=== PATIENT | male | born 1985 | race Caucasian/White ===

== ENCOUNTER 2017-09-29 13:58 | Inpatient (IN) | payer MEDICAID, OTHER ==
[~2017-09-29] VITALS: Ht 175.3 cm; Wt 85.0 kg
[~2017-09-29 13:58] MED LIST: RISP2TAB76 PO
[2017-09-29] MEDS ORDERED: PALI1.5T PO (14:24)
[2017-09-29 14:46] LABS: BASOPHILS # (AUTO) 0.02 K/uL (0.00-0.20); BASOPHILS % (AUTO) 0.3 % (0.0-2.0); EOSINOPHILS # (AUTO) 0.27 K/uL (0.00-0.70); EOSINOPHILS % (AUTO) 3.92 % (1.0-6.0); HEMATOCRIT 46.5 % (41-53); HEMOGLOBIN 15.8 g/dL (13.5-17.5); LYMPHOCYTES # (AUTO) 2.2 K/uL (1.0-4.8); LYMPHOCYTES % (AUTO) 31.4 % (22.0-44.0); MEAN CORPUSCULAR HEMOGLOBIN 29.7 pg (26.0-34.0); MEAN CORPUSCULAR HGB CONC 33.9 G/dL (31.0-37.0); MEAN CORPUSCULAR VOLUME 88 fL (80-100); MONOCYTES # (AUTO) 0.5 K/uL (0.1-1.0); MONOCYTES % (AUTO) 7.7 % (2.0-9.0); NEUTROPHILS # (AUTO) 3.9 K/uL (1.8-7.7); NEUTROPHILS % (AUTO) 56.7 % (40.0-70.0); PLATELET COUNT (AUTO) 206 K/uL (150-450); RED BLOOD CELL COUNT(AUTO) 5.31 MIL/uL (4.50-5.90); RED CELL DISTRIBUTION WIDTH 13.4 % (11.5-14.5); WHITE BLOOD COUNT (AUTO) 6.9 K/uL (4.5-11.0)
[2017-09-29 14:47] LABS: ANION GAP 9 mmol/L (8-16); CALCIUM, TOTAL 8.5 mg/dL (8.8-10.5); CARBON DIOXIDE 27 mmol/L (22-29); CHLORIDE 105 mmol/L (98-107); CREATININE 0.93 mg/dL (0.60-1.30); GLOMERULAR FILTR. RATE CALC > 60 mL/min (>60); POTASSIUM 4.1 mmol/L (3.5-5.1); SODIUM SERUM 141 mmol/L (136-145); UREA NITROGEN, BLOOD 10 mg/dL (7-18)
[2017-09-29 15:54] LABS: ALANINE AMINOTRANSFERASE 18 U/L (12-78); BILIRUBIN,TOTAL 0.8 mg/dL (0.1-1.0); TOTAL PROTEIN, SERUM 6.9 g/dL (6.4-8.2)
[2017-09-29 16:09] LABS: ASPARTATE AMINOTRANSFERASE 14 U/L (15-37)
[2017-09-29] MEDS ORDERED: PALI3 PO (16:34)
[2017-09-29] MEDS ORDERED: RisperiDONE 1 MG TABLET PO PRN (16:45)
[2017-09-29] MEDS ORDERED: GuaiFENesin/D-METHORPHAN [SUGAR-FREE] 200-20MG/10 ML SYRUP UDCUP PO PRN (16:45)
[2017-09-29] MEDS ORDERED: MAGNESIUM HYDROXIDE SUSPENSION 30 ML UDCUP PO PRN (16:45)
[2017-09-29] MEDS ORDERED: ACETAMINOPHEN 325 MG TABLET PO PRN (16:45)
[2017-09-29] MEDS ORDERED: HALOPERIDOL 5 MG TABLET PO ONE (16:45)
[2017-09-29] MEDS ORDERED: MAG HYDROX/AL HYDROX/SIMETH ES 30 ML SUSPENSION UDCUP PO PRN (16:45)
[2017-09-29] MEDS ORDERED: ZOLPIDEM TARTRATE 10 MG TABLET PO PRN (16:45)
[2017-09-29] MEDS ORDERED: PROMETHAZINE HCL 25 MG TABLET PO PRN (16:45)
[2017-09-29] MEDS ORDERED: LORazepam 2 MG TABLET PO ONE (16:45)
[2017-09-29] MEDS ORDERED: TUBERCULIN, PURIFIED PROTEIN DERIVATIVE 5 TU/0.1 ML SYG ID ONE (16:45)
[2017-09-29] MEDS ORDERED: LOPERAMIDE HCL 2 MG CAPSULE PO PRN (16:45)
[2017-09-29 19:40] VITALS: BP 108/68
[2017-09-29] MEDS ORDERED: RisperiDONE 3 MG TABLET PO SCH (21:00)
[2017-09-29] MEDS: THIAMINE HCL 100 MG TABLET PO SCH (21:02)
[2017-09-30 07:12] LABS: BASOPHILS % (AUTO) 0.8 % (0.0-2.0); EOSINOPHILS % (AUTO) 4.9 % (1.0-6.0); HEMATOCRIT 47.1 % (41-53); HEMOGLOBIN 16.3 g/dL (13.5-17.5); LYMPHOCYTES # (AUTO) 2.3 K/uL (1.0-4.8); LYMPHOCYTES % (AUTO) 41.7 % (22.0-44.0); MEAN CORPUSCULAR HEMOGLOBIN 30.1 pg (26.0-34.0); MEAN CORPUSCULAR HGB CONC 34.6 G/dL (31.0-37.0); MEAN CORPUSCULAR VOLUME 87 fL (80-100); MONOCYTES # (AUTO) 0.5 K/uL (0.1-1.0); MONOCYTES % (AUTO) 9.8 % (2.0-9.0); NEUTROPHILS # (AUTO) 2.4 K/uL (1.8-7.7); NEUTROPHILS % (AUTO) 42.8 % (40.0-70.0); PLATELET COUNT (AUTO) 173 K/uL (150-450); RED BLOOD CELL COUNT(AUTO) 5.41 MIL/uL (4.50-5.90); RED CELL DISTRIBUTION WIDTH 13.8 % (11.5-14.5); WHITE BLOOD COUNT (AUTO) 5.6 K/uL (4.5-11.0)
[2017-09-30 07:24] LABS: HEMOGLOBIN A1C 4.9 % (4.5-6.2)
[2017-09-30 07:56] LABS: ALANINE AMINOTRANSFERASE 18 U/L (12-78); ALBUMIN 3.8 g/dL (3.4-5.0); ANION GAP 8 mmol/L (8-16); ASPARTATE AMINOTRANSFERASE 10 U/L (15-37); BILIRUBIN,TOTAL 0.7 mg/dL (0.1-1.0); CALCIUM, TOTAL 8.7 mg/dL (8.8-10.5); CARBON DIOXIDE 26 mmol/L (22-29); CHLORIDE 106 mmol/L (98-107); CHOL/HDL RATIO 2.7 (4.2-7.3); CREATININE 0.97 mg/dL (0.60-1.30); GLOMERULAR FILTR. RATE CALC > 60 mL/min (>60); POTASSIUM 4.1 mmol/L (3.5-5.1); SODIUM SERUM 140 mmol/L (136-145); THYROID STIMULATING HORMONE 1.85 uIU/mL (0.36-3.74); TOTAL PROTEIN, SERUM 6.4 g/dL (6.4-8.2); UREA NITROGEN, BLOOD 10 mg/dL (7-18)
[2017-09-30] MEDS: MULTIVITAMINS WITH MINERALS, THERAPEUTIC TABLET PO SCH (08:16)
[2017-09-30] MEDS: FOLIC ACID 1 MG TABLET PO SCH (08:16)
[2017-09-30] MEDS: THIAMINE HCL 100 MG TABLET PO SCH ×2 (08:16→17:53)
[2017-09-30 09:37] VITALS: BP 110/67
[2017-09-30] MEDS: HydrOXYzine PAMOATE 50 MG CAPSULE PO PRN (11:27)
[2017-09-30] MEDS: LORazepam 2 MG TABLET PO PRN ×2 (11:28→17:53)
[2017-09-30] MEDS: NICOTINE 21 MG/24 HOUR PATCH TD SCH (17:54)
[2017-09-30] MEDS ORDERED: PALIPERIDONE 1.5 MG ER TABLET PO PRN (18:45)
[2017-09-30] MEDS ORDERED: PALIPERIDONE PALMITATE 234 MG/1.5 ML SYRINGE IM ONE (18:45)
[2017-09-30] MEDS: PALIPERIDONE 3 MG ER TABLET PO SCH (21:00)
[2017-10-01 08:37] VITALS: BP 104/59
[2017-10-01] MEDS: HydrOXYzine PAMOATE 50 MG CAPSULE PO PRN (10:01)
[2017-10-01] MEDS: LORazepam 2 MG TABLET PO PRN (10:01)
[2017-10-01] MEDS: THIAMINE HCL 100 MG TABLET PO SCH ×2 (10:02→16:13)
[2017-10-01] MEDS: FOLIC ACID 1 MG TABLET PO SCH (10:02)
[2017-10-01] MEDS: MULTIVITAMINS WITH MINERALS, THERAPEUTIC TABLET PO SCH (10:02)
[2017-10-01] MEDS: NICOTINE 21 MG/24 HOUR PATCH TD SCH (10:05)
[2017-10-01] MEDS: PALIPERIDONE 3 MG ER TABLET PO SCH (20:22)
[2017-10-02 08:15] VITALS: BP 102/62
[2017-10-02] MEDS: THIAMINE HCL 100 MG TABLET PO SCH ×2 (09:07→17:32)
[2017-10-02] MEDS: MULTIVITAMINS WITH MINERALS, THERAPEUTIC TABLET PO SCH (09:07)
[2017-10-02] MEDS: FOLIC ACID 1 MG TABLET PO SCH (09:07)
[2017-10-02] MEDS: NICOTINE 21 MG/24 HOUR PATCH TD SCH (09:19)
[2017-10-02 16:52] VITALS: BP 110/65
[2017-10-02] MEDS: PALIPERIDONE 3 MG ER TABLET PO SCH (20:44)
[2017-10-03] MEDS: THIAMINE HCL 100 MG TABLET PO SCH ×2 (08:00→16:06)
[2017-10-03] MEDS: FOLIC ACID 1 MG TABLET PO SCH (08:00)
[2017-10-03] MEDS: MULTIVITAMINS WITH MINERALS, THERAPEUTIC TABLET PO SCH (08:00)
[2017-10-03] MEDS: NICOTINE 21 MG/24 HOUR PATCH TD SCH (08:00)
[2017-10-03 08:03] VITALS: BP 94/60
[2017-10-03 16:00] VITALS: BP 112/60
[2017-10-03] MEDS: LORazepam 2 MG TABLET PO PRN (16:06)
[2017-10-03] MEDS: PALIPERIDONE 3 MG ER TABLET PO SCH (21:40)
[2017-10-04 08:13] VITALS: BP 105/51
[2017-10-04] MEDS ORDERED: PALIPERIDONE PALMITATE 156 MG/ML SYRINGE IM ONE (09:00)
[2017-10-04] MEDS: NICOTINE 21 MG/24 HOUR PATCH TD SCH (09:23)
[2017-10-04] MEDS: FOLIC ACID 1 MG TABLET PO SCH (09:24)
[2017-10-04] MEDS: MULTIVITAMINS WITH MINERALS, THERAPEUTIC TABLET PO SCH (09:24)
[2017-10-04] MEDS: THIAMINE HCL 100 MG TABLET PO SCH ×2 (09:24→16:18)
[2017-10-04] MEDS ORDERED: PALIPERIDONE PALMITATE 234 MG/1.5 ML SYRINGE IM ONE (13:15)
[2017-10-04] MEDS: PALIPERIDONE 3 MG ER TABLET PO SCH (20:37)
[2017-10-05 08:02] VITALS: BP 105/58
[2017-10-05] MEDS: MULTIVITAMINS WITH MINERALS, THERAPEUTIC TABLET PO SCH (09:00)
[2017-10-05] MEDS: FOLIC ACID 1 MG TABLET PO SCH (09:01)
[2017-10-05] MEDS: NICOTINE 21 MG/24 HOUR PATCH TD SCH (09:01)
[2017-10-05] MEDS: THIAMINE HCL 100 MG TABLET PO SCH ×2 (09:01→16:46)
[2017-10-05 16:58] VITALS: BP 91/60
[2017-10-05] MEDS: PALIPERIDONE 3 MG ER TABLET PO SCH (20:08)
[2017-10-06 08:00] VITALS: BP 100/53
[2017-10-06] MEDS: FOLIC ACID 1 MG TABLET PO SCH (08:23)
[2017-10-06] MEDS: THIAMINE HCL 100 MG TABLET PO SCH ×2 (08:23→16:21)
[2017-10-06] MEDS: NICOTINE 21 MG/24 HOUR PATCH TD SCH (08:24)
[2017-10-06] MEDS: MULTIVITAMINS WITH MINERALS, THERAPEUTIC TABLET PO SCH (08:24)
[2017-10-06] MEDS ORDERED: PALI234D IM (13:02)
[2017-10-06 16:03] VITALS: BP 110/60
== END 2017-10-06 19:00 | disposition home or self-care (01) | DRG 750 ==
LOC: EMS 13:59 → EEVIPCON 13:59 → 3EC 17:18
PROVIDERS: ADMIT Psychiatry & Neurology Psychiatry; ATTEND Psychiatry & Neurology Psychiatry
DX: F20.0 Paranoid schizophrenia (principal); R45.851 Suicidal ideations; Z91.14 Patient's other noncompliance with medication regimen; E66.9 Obesity, unspecified; F17.210 Nicotine dependence, cigarettes, uncomplicated; G47.00 Insomnia, unspecified; Z65.3 Problems related to other legal circumstances; Z68.29 Body mass index [BMI] 29.0-29.9, adult; Z91.19 Patient's noncompliance with other medical treatment and regimen; Z79.899 Other long term (current) drug therapy; Z71.6 Tobacco abuse counseling
CPT/HCPCS: 83036; 84439; 84443; 86592; 93005; 99285; G0480

== ENCOUNTER 2017-12-25 17:49 | Inpatient (IN) | payer MEDICAID ==
[~2017-12-25] VITALS: Ht 175.3 cm; Wt 86.6 kg
[~2017-12-25 17:49] MED LIST changes: +PALI234D IM; -RISP2TAB76 PO
[2017-12-25 20:27] VITALS: BP 119/72
[2017-12-25] MEDS ORDERED: INFLUENZA VIRUS VACCINE QVS 2017-18 (3YR+)/PF 60 MCG/0.5 ML SYRINGE IM ONE (20:30)
[2017-12-25] MEDS ORDERED: HALOPERIDOL 5 MG TABLET PO PRN (20:45)
[2017-12-25] MEDS ORDERED: ZOLPIDEM TARTRATE 10 MG TABLET PO PRN (20:45)
[2017-12-25 21:10] VITALS: BP 117/77
[2017-12-26 01:12] VITALS: BP 110/64
[2017-12-26 08:09] LABS: BASOPHILS % (AUTO) 0.6 % (0.0-2.0); EOSINOPHILS % (AUTO) 4.5 % (1.0-6.0); HEMATOCRIT 46.1 % (41-53); LYMPHOCYTES % (AUTO) 41.5 % (22.0-44.0); MEAN CORPUSCULAR HEMOGLOBIN 29.9 pg (26.0-34.0); MEAN CORPUSCULAR HGB CONC 34.8 G/dL (31.0-37.0); MEAN CORPUSCULAR VOLUME 86 fL (80-100); MONOCYTES # (AUTO) 0.6 K/uL (0.1-1.0); MONOCYTES % (AUTO) 8.9 % (2.0-9.0); NEUTROPHILS # (AUTO) 3.2 K/uL (1.8-7.7); NEUTROPHILS % (AUTO) 44.5 % (40.0-70.0); PLATELET COUNT (AUTO) 234 K/uL (150-450); RED BLOOD CELL COUNT(AUTO) 5.37 MIL/uL (4.50-5.90); RED CELL DISTRIBUTION WIDTH 13.5 % (11.5-14.5)
[2017-12-26 08:22] VITALS: BP 100/60
[2017-12-26 08:27] LABS: HEMOGLOBIN A1C 5.1 % (4.5-6.2)
[2017-12-26 08:37] LABS: ALANINE AMINOTRANSFERASE 16 U/L (12-78); ALBUMIN 3.6 g/dL (3.4-5.0); ALKALINE PHOSPHATASE 96 U/L (46-116); ANION GAP 9 mmol/L (8-16); ASPARTATE AMINOTRANSFERASE 14 U/L (15-37); BILIRUBIN,TOTAL 1.2 mg/dL (0.1-1.0); CALCIUM, TOTAL 8.4 mg/dL (8.8-10.5); CARBON DIOXIDE 27 mmol/L (22-29); CHLORIDE 107 mmol/L (98-107); CHOL/HDL RATIO 2.6 (4.2-7.3); CHOLESTEROL 95 mg/dL (131-200); CREATININE 0.79 mg/dL (0.60-1.30); FREE T4 (FREE THYROXINE) 0.96 ng/dL (0.76-1.46); GLOMERULAR FILTR. RATE CALC > 60 mL/min (>60); GLUCOSE,RANDOM 81 mg/dL (70-110); HDL CHOLESTEROL 37 mg/dL (40-60); LDL CHOL (CALC.) 43 mg/dL (0-130); POTASSIUM 3.7 mmol/L (3.5-5.1); SODIUM SERUM 143 mmol/L (136-145); THYROID STIMULATING HORMONE 1.84 uIU/mL (0.36-3.74); TOTAL PROTEIN, SERUM 6.4 g/dL (6.4-8.2); TRIGLYCERIDES 77 mg/dL (15-150); UREA NITROGEN, BLOOD 5 mg/dL (7-18)
[2017-12-26] MEDS ORDERED: MAG HYDROX/AL HYDROX/SIMETH ES 30 ML SUSPENSION UDCUP PO PRN (08:45)
[2017-12-26] MEDS ORDERED: LOPERAMIDE HCL 2 MG CAPSULE PO PRN (08:45)
[2017-12-26] MEDS ORDERED: BENZOCAINE/MENTHOL LOZENGE MM PRN (08:45)
[2017-12-26] MEDS ORDERED: MAGNESIUM HYDROXIDE SUSPENSION 30 ML UDCUP PO PRN (08:45)
[2017-12-26] MEDS ORDERED: IBUPROFEN 600 MG TABLET PO PRN (08:45)
[2017-12-26] MEDS ORDERED: CloNIDine HCL 0.1 MG TABLET PO PRN (08:45)
[2017-12-26] MEDS ORDERED: ONDANSETRON HCL 4 MG TABLET PO PRN (08:45)
[2017-12-26] MEDS ORDERED: ALBUTEROL SULFATE HFA 90 MCG/PUFF 8 GM INHALER IH PRN (08:45)
[2017-12-26] MEDS ORDERED: ACETAMINOPHEN 325 MG TABLET PO PRN (08:45)
[2017-12-26] MEDS ORDERED: PETROLATUM,WHITE 71 GM JELLY TP PRN (08:45)
[2017-12-26] MEDS: BACITRACIN 28.4 GM OINTMENT TP SCH ×2 (10:16→16:26)
[2017-12-26 16:11] VITALS: BP 109/67
[2017-12-26] MEDS: PALIPERIDONE 6 MG ER TABLET PO SCH (20:40)
[2017-12-27 04:22] VITALS: BP 114/62
[2017-12-27 08:36] VITALS: BP 107/60
[2017-12-27] MEDS: PALIPERIDONE 6 MG ER TABLET PO SCH ×2 (09:10→20:25)
[2017-12-27] MEDS: FLUoxetine HCL 20 MG CAPSULE PO SCH (09:11)
[2017-12-27] MEDS: BACITRACIN 28.4 GM OINTMENT TP SCH ×2 (09:11→16:43)
[2017-12-27 16:24] VITALS: BP 120/60
[2017-12-28 06:37] VITALS: BP 101/63
[2017-12-28 08:49] VITALS: BP 113/62
[2017-12-28] MEDS: PALIPERIDONE 6 MG ER TABLET PO SCH ×2 (08:57→20:12)
[2017-12-28] MEDS: FLUoxetine HCL 20 MG CAPSULE PO SCH (08:57)
[2017-12-28] MEDS: LORazepam 2 MG TABLET PO PRN (09:18)
[2017-12-28] MEDS: BACITRACIN 28.4 GM OINTMENT TP SCH ×2 (10:21→16:48)
[2017-12-28 16:34] VITALS: BP 102/64
[2017-12-29 06:56] VITALS: BP 100/60
[2017-12-29 08:33] VITALS: BP 107/72
[2017-12-29] MEDS: BACITRACIN 28.4 GM OINTMENT TP SCH (10:00)
[2017-12-29] MEDS: FLUoxetine HCL 20 MG CAPSULE PO SCH (10:00)
[2017-12-29] MEDS: PALIPERIDONE 6 MG ER TABLET PO SCH (10:00)
[2017-12-29] MEDS: LORazepam 2 MG TABLET PO PRN (12:07)
[2017-12-29] MEDS ORDERED: PALI6 PO (12:57)
[2017-12-29] MEDS ORDERED: FLUO-191 PO (12:57)
== END 2017-12-29 15:23 | disposition home or self-care (01) | DRG 750 ==
LOC: B2S 20:47
PROVIDERS: ADMIT Psychiatry & Neurology Psychiatry; ATTEND Psychiatry & Neurology Psychiatry
PROC: 3E0234Z Introduction of Serum, Toxoid and Vaccine into Muscle, Percutaneous Approach (ICD-10-PCS; principal; 2017-12-26)
DX: F25.1 Schizoaffective disorder, depressive type (principal); Z59.0 Homelessness; F41.9 Anxiety disorder, unspecified; F17.200 Nicotine dependence, unspecified, uncomplicated; G47.00 Insomnia, unspecified; F60.3 Borderline personality disorder; Z23 Encounter for immunization; Z71.6 Tobacco abuse counseling; Z56.0 Unemployment, unspecified
CPT/HCPCS: 83036; 84439; 84443; 90471

== ENCOUNTER 2018-12-17 18:25 | Inpatient (IN) | payer MEDICAID ==
[~2018-12-17 18:25] MED LIST changes: +PALI3 PO
[2018-12-17] MEDS ORDERED: ZOLPIDEM TARTRATE 10 MG TABLET PO PRN (22:45)
[2018-12-18] VITALS (11 sets, daily range): BP systolic 112–129; BP diastolic 64–83
[2018-12-18] MEDS ORDERED: MAGNESIUM HYDROXIDE SUSPENSION 30 ML UDCUP PO PRN (02:45)
[2018-12-18] MEDS ORDERED: ALBUTEROL SULFATE HFA 90 MCG/PUFF 8 GM INHALER IH PRN (02:45)
[2018-12-18] MEDS ORDERED: IBUPROFEN 400 MG TABLET PO PRN (02:45)
[2018-12-18] MEDS ORDERED: ONDANSETRON HCL 4 MG TABLET PO PRN (02:45)
[2018-12-18] MEDS ORDERED: CloNIDine HCL 0.1 MG TABLET PO PRN (02:45)
[2018-12-18] MEDS ORDERED: GuaiFENesin/D-METHORPHAN [SUGAR-FREE] 200-20MG/10 ML SYRUP UDCUP PO PRN (02:45)
[2018-12-18] MEDS ORDERED: DOCUSATE SODIUM 100 MG CAPSULE PO PRN (02:45)
[2018-12-18] MEDS ORDERED: ACETAMINOPHEN 325 MG TABLET PO PRN (02:45)
[2018-12-18] MEDS ORDERED: MAG HYDROX/AL HYDROX/SIMETH ES 30 ML SUSPENSION UDCUP PO PRN (02:45)
[2018-12-18] MEDS ORDERED: LOPERAMIDE HCL 2 MG CAPSULE PO PRN (02:45)
[2018-12-18] MEDS ORDERED: NICOTINE 14 MG/24 HOUR PATCH TD PRN (02:45)
[2018-12-18] MEDS ORDERED: PETROLATUM,WHITE 71 GM JELLY TP PRN (02:45)
[2018-12-18 08:01] LABS: BILIRUBIN,URINE NEGATIVE (NEGATIVE); GLUCOSE, URINE (UA) NEGATIVE (NEGATIVE); KETONES,URINE NEGATIVE (NEGATIVE); LEUKOCYTE ESTERASE ,URINE NEGATIVE (NEGATIVE); NITRATE,URINE NEGATIVE (NEGATIVE); OCCULT BLOOD,URINE NEGATIVE (NEGATIVE); PH,URINE 5.5 (5.0-8.0); PROTEIN,URINE NEGATIVE (NEGATIVE); UROBILINOGEN,URINE 0.2 mg/dL (<=1.0)
[2018-12-18 08:06] LABS: BASOPHILS % (AUTO) 0.7 % (0.0-2.0); EOSINOPHILS % (AUTO) 6.2 % (1.0-6.0); HEMATOCRIT 44.3 % (41-53); HEMOGLOBIN 15.5 g/dL (13.5-17.5); LYMPHOCYTES # (AUTO) 2.2 K/uL (1.0-4.8); LYMPHOCYTES % (AUTO) 28.5 % (22.0-44.0); MEAN CORPUSCULAR HEMOGLOBIN 31.2 pg (26.0-34.0); MEAN CORPUSCULAR HGB CONC 34.9 G/dL (31.0-37.0); MEAN CORPUSCULAR VOLUME 89 fL (80-100); MONOCYTES # (AUTO) 0.6 K/uL (0.1-1.0); NEUTROPHILS # (AUTO) 4.4 K/uL (1.8-7.7); NEUTROPHILS % (AUTO) 56.6 % (40.0-70.0); PLATELET COUNT (AUTO) 224 K/uL (150-450); RED BLOOD CELL COUNT(AUTO) 4.97 MIL/uL (4.50-5.90); RED CELL DISTRIBUTION WIDTH 14.1 % (11.5-14.5)
[2018-12-18 08:06] LABS: APPEARANCE,URINE HAZY (CLEAR)
[2018-12-18 08:18] LABS: ALANINE AMINOTRANSFERASE 32 U/L (12-78); ALBUMIN 3.5 g/dL (3.4-5.0); ALKALINE PHOSPHATASE 84 U/L (46-116); ANION GAP 7 mmol/L (8-16); ASPARTATE AMINOTRANSFERASE 27 U/L (15-37); BILIRUBIN,TOTAL 0.5 mg/dL (0.1-1.0); CALCIUM, TOTAL 8.3 mg/dL (8.8-10.5); CARBON DIOXIDE 29 mmol/L (22-29); CHLORIDE 103 mmol/L (98-107); CHOL/HDL RATIO 2.6 (4.2-7.3); CHOLESTEROL 174 mg/dL (131-200); CREATININE 0.96 mg/dL (0.60-1.30); FREE T4 (FREE THYROXINE) 0.79 ng/dL (0.76-1.46); GLOMERULAR FILTR. RATE CALC > 60 mL/min (>60); GLUCOSE,RANDOM 95 mg/dL (70-110); HDL CHOLESTEROL 66 mg/dL (40-60); LDL CHOL (CALC.) 92 mg/dL (0-130); POTASSIUM 3.8 mmol/L (3.5-5.1); SODIUM SERUM 139 mmol/L (136-145); THYROID STIMULATING HORMONE 1.36 uIU/mL (0.36-3.74); TOTAL PROTEIN, SERUM 6.6 g/dL (6.4-8.2); TRIGLYCERIDES 82 mg/dL (15-150); UREA NITROGEN, BLOOD 14 mg/dL (7-18)
[2018-12-18 08:22] LABS: AMPHET/METH SCREEN,URINE NEGATIVE (NEGATIVE); BARBITURATE SCREEN, URINE NEGATIVE (NEGATIVE); BENZODIAZEPINES SCREEN,URINE NEGATIVE (NEGATIVE); CANNABINOID SCREEN,URINE NEGATIVE (NEGATIVE); COCAINE SCREEN,URINE NEGATIVE (NEGATIVE); METHADONE SCREEN, URINE NEGATIVE (NEGATIVE); OPIATE SCREEN,URINE NEGATIVE (NEGATIVE)
[2018-12-18 08:23] LABS: HEMOGLOBIN A1C 5.1 % (4.5-6.2)
[2018-12-18 08:24] LABS: PHENCYCLIDINE SCREEN,URINE NEGATIVE (NEGATIVE)
[2018-12-18] MEDS: PALIPERIDONE 3 MG ER TABLET PO SCH ×2 (13:17→20:26)
[2018-12-19 01:00] VITALS: BP 116/72
[2018-12-19 04:22] VITALS: BP 118/81
[2018-12-19 05:23] VITALS: BP 118/74
[2018-12-19 08:33] VITALS: BP 114/78
[2018-12-19] MEDS: PALIPERIDONE 3 MG ER TABLET PO SCH (09:25)
[2018-12-19 16:37] VITALS: BP 114/60
[2018-12-19] MEDS ORDERED: PALIPERIDONE 6 MG ER TABLET PO SCH (21:00)
[2018-12-20 00:39] VITALS: BP 119/83
[2018-12-20 08:24] VITALS: BP 102/60
[2018-12-20] MEDS ORDERED: PALIPERIDONE 3 MG ER TABLET PO SCH (09:00)
[2018-12-20 16:26] VITALS: BP 121/74
[2018-12-20] MEDS: LORazepam 2 MG TABLET PO PRN (17:31)
[2018-12-20] MEDS: PALIPERIDONE 6 MG ER TABLET PO SCH (20:38)
[2018-12-21 00:48] VITALS: BP 120/82
[2018-12-21 08:17] VITALS: BP 118/65
[2018-12-21 16:00] VITALS: BP 121/73
[2018-12-21] MEDS: LORazepam 2 MG TABLET PO PRN (17:30)
[2018-12-21] MEDS: PALIPERIDONE 6 MG ER TABLET PO SCH (20:34)
[2018-12-22 00:53] VITALS: BP 128/86
[2018-12-22 08:09] VITALS: BP 107/74
[2018-12-22] MEDS: HALOPERIDOL 5 MG TABLET PO PRN (12:46)
[2018-12-22] MEDS: LORazepam 2 MG TABLET PO PRN (12:47)
[2018-12-22 16:23] VITALS: BP 116/66
[2018-12-22] MEDS: PALIPERIDONE 6 MG ER TABLET PO SCH (20:20)
[2018-12-23 05:34] VITALS: BP 118/69
[2018-12-23 08:28] VITALS: BP 110/73
[2018-12-23] MEDS: LORazepam 2 MG TABLET PO PRN (09:54)
[2018-12-23] MEDS: HALOPERIDOL 5 MG TABLET PO PRN (09:54)
[2018-12-23 16:19] VITALS: BP 102/64
[2018-12-23] MEDS: ZIPRASIDONE HCL 20 MG CAPSULE PO SCH (17:03)
[2018-12-23] MEDS: PALIPERIDONE 3 MG ER TABLET PO SCH (21:09)
[2018-12-24 01:28] VITALS: BP 110/68
[2018-12-24] MEDS: ZIPRASIDONE HCL 20 MG CAPSULE PO SCH ×2 (06:49→17:32)
[2018-12-24 08:25] VITALS: BP 139/79
[2018-12-24 16:08] VITALS: BP 118/71
[2018-12-24] MEDS: LORazepam 2 MG TABLET PO PRN (17:32)
[2018-12-24] MEDS: HALOPERIDOL 5 MG TABLET PO PRN (17:33)
[2018-12-24] MEDS: PALIPERIDONE 3 MG ER TABLET PO SCH (20:43)
[2018-12-25 00:57] VITALS: BP 120/81
[2018-12-25] MEDS: ZIPRASIDONE HCL 20 MG CAPSULE PO SCH ×2 (06:49→17:00)
[2018-12-25 08:44] VITALS: BP 112/68
[2018-12-25 16:11] VITALS: BP 116/72
[2018-12-25] MEDS: PALIPERIDONE 3 MG ER TABLET PO SCH (20:45)
[2018-12-26 06:25] VITALS: BP 117/74
[2018-12-26] MEDS: ZIPRASIDONE HCL 20 MG CAPSULE PO SCH (06:52)
[2018-12-26 08:53] VITALS: BP 107/60
[2018-12-26 16:10] VITALS: BP 111/66
[2018-12-26] MEDS: ZIPRASIDONE HCL 40 MG CAPSULE PO SCH (16:44)
[2018-12-26] MEDS: PALIPERIDONE 3 MG ER TABLET PO SCH (20:16)
[2018-12-27 02:40] VITALS: BP 118/73
[2018-12-27] MEDS: ZIPRASIDONE HCL 40 MG CAPSULE PO SCH ×2 (06:29→16:25)
[2018-12-27 08:36] VITALS: BP 110/74
[2018-12-27 16:23] VITALS: BP 117/66
[2018-12-27] MEDS: PALIPERIDONE 3 MG ER TABLET PO SCH (20:29)
[2018-12-28 02:01] VITALS: BP 113/70
[2018-12-28] MEDS: ZIPRASIDONE HCL 40 MG CAPSULE PO SCH ×2 (06:46→16:30)
[2018-12-28 08:16] VITALS: BP 111/68
[2018-12-28 16:11] VITALS: BP 115/45
[2018-12-28] MEDS: PALIPERIDONE 3 MG ER TABLET PO SCH (20:44)
[2018-12-29 01:05] VITALS: BP 102/64
[2018-12-29] MEDS: ZIPRASIDONE HCL 40 MG CAPSULE PO SCH ×2 (06:49→17:00)
[2018-12-29 08:00] VITALS: BP 101/63
[2018-12-29] MEDS ORDERED: ZIPR40CA2 PO (10:19)
[2018-12-29 17:45] VITALS: BP 106/63
[2018-12-29] MEDS: PALIPERIDONE 3 MG ER TABLET PO SCH (20:36)
[2018-12-30 03:17] VITALS: BP 107/74
[2018-12-30] MEDS: ZIPRASIDONE HCL 40 MG CAPSULE PO SCH ×2 (06:42→16:09)
[2018-12-30 08:13] VITALS: BP 123/92
[2018-12-30 16:21] VITALS: BP 105/60
[2018-12-30] MEDS: PALIPERIDONE 3 MG ER TABLET PO SCH (20:20)
[2018-12-31 01:21] VITALS: BP 110/68
[2018-12-31] MEDS: ZIPRASIDONE HCL 40 MG CAPSULE PO SCH ×2 (07:00→17:00)
[2018-12-31 08:12] VITALS: BP 105/66
[2018-12-31 16:20] VITALS: BP 110/77
[2018-12-31] MEDS: PALIPERIDONE 3 MG ER TABLET PO SCH (20:44)
[2019-01-01 02:36] VITALS: BP 103/65
[2019-01-01] MEDS: ZIPRASIDONE HCL 40 MG CAPSULE PO SCH ×2 (06:30→16:14)
[2019-01-01 09:07] VITALS: BP 124/74
[2019-01-01 16:07] VITALS: BP 110/68
[2019-01-01] MEDS: PALIPERIDONE 3 MG ER TABLET PO SCH (20:10)
[2019-01-02 03:14] VITALS: BP 107/60
[2019-01-02] MEDS: ZIPRASIDONE HCL 40 MG CAPSULE PO SCH ×2 (06:59→16:13)
[2019-01-02 08:19] VITALS: BP 117/70
[2019-01-02 16:37] VITALS: BP 109/69
[2019-01-02] MEDS: PALIPERIDONE 3 MG ER TABLET PO SCH (20:50)
[2019-01-03 00:45] VITALS: BP 109/57
[2019-01-03] MEDS: ZIPRASIDONE HCL 40 MG CAPSULE PO SCH ×2 (07:01→16:16)
[2019-01-03 08:28] VITALS: BP 120/73
[2019-01-03 16:43] VITALS: BP 119/67
[2019-01-03] MEDS: PALIPERIDONE 3 MG ER TABLET PO SCH (20:12)
[2019-01-04 04:42] VITALS: BP 115/70
[2019-01-04] MEDS: ZIPRASIDONE HCL 40 MG CAPSULE PO SCH ×2 (06:37→16:44)
[2019-01-04 08:14] VITALS: BP 106/68
[2019-01-04 16:33] VITALS: BP 109/70
[2019-01-04] MEDS: PALIPERIDONE 3 MG ER TABLET PO SCH (20:18)
[2019-01-05 01:06] VITALS: BP 107/68
[2019-01-05] MEDS: ZIPRASIDONE HCL 40 MG CAPSULE PO SCH ×2 (07:14→16:26)
[2019-01-05 08:14] VITALS: BP 123/72
[2019-01-05 16:06] VITALS: BP 110/70
[2019-01-05] MEDS: PALIPERIDONE 3 MG ER TABLET PO SCH (20:22)
[2019-01-06 02:34] VITALS: BP 117/75
[2019-01-06] MEDS: ZIPRASIDONE HCL 40 MG CAPSULE PO SCH ×2 (07:02→16:36)
[2019-01-06 08:33] VITALS: BP 122/64
[2019-01-06] MEDS: LORazepam 2 MG TABLET PO PRN (13:56)
[2019-01-06 16:07] VITALS: BP 112/64
[2019-01-06] MEDS: PALIPERIDONE 3 MG ER TABLET PO SCH (20:21)
[2019-01-07 04:56] VITALS: BP 118/60
[2019-01-07] MEDS: ZIPRASIDONE HCL 40 MG CAPSULE PO SCH ×2 (07:11→16:09)
[2019-01-07 08:13] VITALS: BP 122/69
[2019-01-07 16:10] VITALS: BP 104/64
[2019-01-07] MEDS: PALIPERIDONE 3 MG ER TABLET PO SCH (20:32)
[2019-01-08 00:19] VITALS: BP 106/62
[2019-01-08] MEDS: ZIPRASIDONE HCL 40 MG CAPSULE PO SCH (06:44)
[2019-01-08 08:26] VITALS: BP 118/62
[2019-01-08] MEDS: LORazepam 2 MG TABLET PO PRN (12:34)
[2019-01-08] MEDS ORDERED: RISP3TAB44 PO (14:28)
[2019-01-08] MEDS ORDERED: RisperiDONE 3 MG TABLET PO SCH (21:00)
== END 2019-01-08 14:45 | disposition home or self-care (01) | DRG 750 ==
LOC: B2S 22:47
PROVIDERS: ADMIT Psychiatry & Neurology Psychiatry; ATTEND Psychiatry & Neurology Psychiatry
DX: F20.0 Paranoid schizophrenia (principal); R45.851 Suicidal ideations; E83.51 Hypocalcemia; F32.9 Major depressive disorder, single episode, unspecified; F10.10 Alcohol abuse, uncomplicated; F41.9 Anxiety disorder, unspecified; F17.210 Nicotine dependence, cigarettes, uncomplicated; G47.00 Insomnia, unspecified; R45.87 Impulsiveness; Z59.0 Homelessness
CPT/HCPCS: 80307; 82310; 83036; 84439; 84443; 87081